=== PATIENT | male | born 1960 | race Hispanic/Latino ===

== ENCOUNTER 2017-04-14 10:39 | Outpatient (CLI) | payer OTHER ==
--- NOTE | 2017-04-15 08:17 | Vascular Lab Report ---
LOWER EXTREMITY ARTERIAL DUPLEX: REASON FOR EXAM: Peripheral arterial disease. COMMENTS ON THE RIGHT: Biphasic waveforms are seen distally. COMMENTS ON THE LEFT: Monophasic waveforms are seen proximally. Monophasic waveforms are seen distally. No significant velocity gradients are identified. No focal significant plaque is identified. Findings are consistent with abnormal perfusion due to proximal disease. Findings are inconsistent with the ability to heal distal wounds. IMPRESSION: LEFT:Findings consistent with inflow disease. Most likely in the iliac given biphasic flow on the other side. Clinical correlation is recommended.
== END 2017-04-14 10:40 | disposition home or self-care (01) ==
LOC: VAS 10:39
PROVIDERS: ATTEND Family Medicine
DX: M79.605 Pain in left leg (principal)